=== PATIENT | female | born 1960 | race Caucasian/White ===

== ENCOUNTER → 2016-06-07 | Outpatient (CLI) | payer BC ==
[~2016-06-07] MED LIST: AMBIEN 10MG10 MG PO; BUPROBAN150 MG PO; CARAFATE 1GM1 G PO; CELEBREX 200MG200 MG PO; CRESTOR 10MG10 MG PO; CYMBALTA 30MG30 MG PO; FEMRING; FEMRING0.1 MG/24 VG; GLUCOPHAGE500 MG/TAB PO; KLONOPIN 0.5MG0.5 MG PO; LYRICA 50MG CAP50 MG PO; NEXIUM 40MG40 MG PO; OMEGA-3 FISH1200 MG PO; ORENCIA CL125 MG/1 M SQ; ORENCIA125 MG/ML SC; SEROQUEL 1100 MG/TAB; ULTRAM 50MG TAB50 MG PO; VIT D 3; VIT E; ZESTRIL 20MG TA20 MG PO
== END ==
LOC: BHSO 13:44
DX: F31.73 Bipolar disorder, in partial remission, most recent episode manic (principal)

== ENCOUNTER → 2016-08-23 | Outpatient (CLI) | payer BC | LOC: MC.RAD 13:54 | DX: N64.4 Mastodynia (principal); N63 Unspecified lump in breast ==

== ENCOUNTER 2016-08-26 19:36 | Emergency (ER) | payer BC ==
[~2016-08-26] VITALS: Ht 160 cm; Wt 80.5 kg
[2016-08-26 19:42] VITALS: TEMP 98.6
[2016-08-26] MEDS ORDERED: ORENCIA CL125 MG/1 M SQ (20:01)
[2016-08-26 21:12] VITALS: BP 130/70; PULSE 84
== END 2016-08-26 21:14 | disposition home or self-care (01) ==
LOC: COL.ER 19:36
DX: S40.011A Contusion of right shoulder, initial encounter (principal); S60.211A Contusion of right wrist, initial encounter; W01.198A Fall on same level from slipping, tripping and stumbling with subsequent striking against other object, initial encounter; F31.9 Bipolar disorder, unspecified; M06.9 Rheumatoid arthritis, unspecified

== ENCOUNTER → 2016-09-12 | Outpatient (CLI) | payer BC | LOC: BHSO 14:52 | DX: F31.81 Bipolar II disorder (principal) ==

== ENCOUNTER → 2016-12-15 | Outpatient (CLI) | payer BC | LOC: BHSO 09:16 | DX: F31.81 Bipolar II disorder (principal) ==

== ENCOUNTER → 2017-03-12 | Outpatient (CLI) | payer BC | LOC: BHSO 09:57 | DX: F31.81 Bipolar II disorder (principal) ==

== ENCOUNTER → 2017-06-11 | Outpatient (CLI) | payer BC | LOC: BHSO 12:54 | DX: F31.81 Bipolar II disorder (principal) | CPT/HCPCS: G0463 ==

== ENCOUNTER 2017-07-17 15:48 | Emergency (ER) | payer BC ==
[~2017-07-17] VITALS: Ht 160 cm; Wt 82.3 kg
[2017-07-17 15:57] VITALS: TEMP 98.3
[2017-07-17 19:21] VITALS: BP 124/77; PULSE 77
== END 2017-07-17 18:50 | disposition home or self-care (01) ==
LOC: COL.ER 15:48
DX: T18.128A Food in esophagus causing other injury, initial encounter (principal); R13.10 Dysphagia, unspecified; M79.7 Fibromyalgia; I10 Essential (primary) hypertension
CPT/HCPCS: C1726; J2060; J2250; J2405; J3010; J7030

== ENCOUNTER → 2017-09-13 | Outpatient (CLI) | payer BC | LOC: BHSO 11:15 | DX: F31.31 Bipolar disorder, current episode depressed, mild (principal) | CPT/HCPCS: G0463 ==

== ENCOUNTER → 2017-11-12 | Outpatient (CLI) | payer BC | LOC: MC.RAD 12:45 | DX: Z12.31 Encounter for screening mammogram for malignant neoplasm of breast (principal) ==

== ENCOUNTER → 2017-11-13 | Outpatient (CLI) | payer BC | LOC: BHSO 11:38 | DX: F31.74 Bipolar disorder, in full remission, most recent episode manic (principal) | CPT/HCPCS: G0463 ==

== ENCOUNTER → 2018-02-06 | Outpatient (CLI) | payer BC | LOC: BHSO 13:02 | DX: F31.32 Bipolar disorder, current episode depressed, moderate (principal) | CPT/HCPCS: G0463 ==

== ENCOUNTER → 2018-03-22 | Outpatient (CLI) | payer BC | LOC: BHSO 13:00 | DX: F31.81 Bipolar II disorder (principal) | CPT/HCPCS: G0463 ==